=== PATIENT | female | born 1995 | race Hispanic/Latino ===

== ENCOUNTER 2016-12-02 00:49 | Emergency (ER) | payer MEDICAID ==
[2016-12-02 01:38] LABS: RBC URINE 15 /hpf (0-3); URINE BACTERIA RARE (<OCC); URINE BILIRUBIN NEGATIVE (NEGATIVE); URINE BLOOD 1+ (NEGATIVE); URINE COLOR Yellow (YELLOW); URINE GLUCOSE (UA) NORMAL (Normal); URINE KETONE NEGATIVE (NEGATIVE); URINE LEUKOCYTE ESTERASE 2+ Leu/uL (Negative); URINE PROTEIN NEGATIVE (NEGATIVE); URINE UROBILINOGEN NORMAL mg/dL (0.2-1.0); WBC URINE 7 /hpf (0-5)
--- NOTE | 2016-12-02 01:47 | OBHP ---
Datetime: 12/02/2016 01:03 IP Adm Impression: , intrauterine IP Chief Complaint Other: vaginal discharge IP Admit Plan: Observation/Evaluation Admit Comment, IP Provider: 21 y.o. 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 every 6 minutes". Also, reports sticky vaginal discharge, watery - 1700 hours; " my underwear was wet, like I peed on myself". (+) AFM; denies VB. Last had sexual intercourse 1 month ago. care: Dr. Héctor Elliott, affiliated with [facility]. P Ob: x 2: 2011, male, 8lb; no GDM. 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 Denies STIs or abnormal Pap PMH: denies PSH: denies NKDA Food allergy: strawberry = hives, itching Meds: PNV - QD Soc Hx: denies tobacco, illicit drug or EtOH use. LIves with /fOB and her children; with FOB x 1 y ear. Unemployed. Fam Hx: Mother alive 42 y.o. Father alive 41 y.o. - both, no med issues. (+) fam h/o DM and HTN P.E.: as above. WD in NAD. Awake, alert, oriented to time, person and place. Pleasant and amanda ative Assessment: 21 y.o. P2, 27w 4d, not in labor; no PPROM. Category 1 tracing. Plan: 1) U/A Addendum: 0142 hours - U/A: leuk esterase 2+; S.G. 1.016; hazy Assessment: early UTI. Clinically stable. Plan: 1) Discharge home 2) Rx: macroBID 100 mg 1 tab po BID x 7 days 3) Keep next scheduled appointment 4) Reviewed S/S PTL Pelvic Type - PN: Adequate Extremities - PN: Normal Abdomen - PN: Normal Back - PN: Normal Breast - PN: Not Done Lungs - PN: Normal Heart - PN: Normal Thyroid - PN: Not Done Neurologic - PN: Normal HEENT - PN: Normal General - PN: Normal Presentation-Admit: Vertex FHR - Baseline A Provider: 145 Contraction Comments Provider: none Comments, ACOG Physical Exam: Abdomen: Gravid. Soft. Non tender Perineum: dry Speculum: no pooling; nitrazine (-) All other systems reviewed and are negative Gestation - Est Wks by US: 27w 4d Vital Signs Provider: Reviewed IP Chief Complaint: Maternal discomfort NICHD Variability Prov Fetus A: Moderate 6-25bpm Dilatation, Provider: 0 Effacement, Provider: 0 Station, Provider: high Genitourinary Exam: Normal DTRs - PN: Not Done
[2016-12-02 06:36] VITALS: BP 102/50; PULSE 85; TEMP 98.2
== END 2016-12-02 01:50 | disposition home or self-care (01) ==
LOC: C.EROB 00:49
DX: O23.42 Unspecified infection of urinary tract in pregnancy, second trimester (principal); Z3A.27 27 weeks gestation of pregnancy